=== PATIENT | female | born 1995 | race Two or more races ===

== ENCOUNTER 2017-03-17 00:10 | Emergency (ER) | payer OTHER ==
[2017-03-17 00:17] VITALS: BP 136/89; BMI 43.5
--- NOTE | 2017-03-17 01:11 | DR.GENAD ---
HPI - PCP Primary Care Physician: MANOJ - HPI Comment HPI Comment: HISTORY BELOW. - Complaint/Symptoms Chief Complaint Doctors Comments: INFECTED RIGHT INDEX FINGER TIMES 4 TO 5 DAYS. DRAINING. PIP RT INDEX FINGER SWOLLEN AND SLIGHTLY DRAINING PUS. Chief Complaint:: PT HAS ABCESS TOO RT 2ND DIGIT ON RT HAND - Nurses notes reviewed Nurses Notes Review: Yes - Source History Provided: Patient - Mode of Arrival Mode of Arrival: Ambulatory - Timing Onset of Chief Complaint: 03/13/17 Came on: Suddenly - Duration Duration: Constant Duration: Days - Severity Severity: Moderate PMH - PMH Past Medical History: No Past Surgical History: No Surgical History: No History - Family History History of Family Medical Conditions: Yes Family Medical History: Diabetes Mellitus, Cancer, [place], Sudden Cardiac - Social History Does any household member use tobacco: No Alcohol Use: None Do you use any recreational Drugs:: No Lives With: Family Lives Where: Home - infectious screening In the last 2 months have you had wt loss of >10#?: NO Have you had fever, night sweats or hemotysis?: No Have you traveled outside the country in the last 6 months?: No Isolation: Standard ROS - Review of Systems Constitutional: No Symptoms Reported Eyes: No Symptoms Reported ENTM: No Symptoms Reported Respiratoy: No Symptoms Reported Cardiovascular: No Symptoms Reported Gastrointestinal/Abdominal: No Symptoms Reported Genitourinary: No Symptoms Reported Neurological: No Symptoms Reported Musculoskeletal: Muscle Pain Integumentary: Other (INFECTED RT INDEX FINGER.) Hematologic/Lymphatic: No Symptoms Reported Endocrine: No Symptoms Reported All Other Systems: Reviewed and Negative PE - Vital Signs Vitals: Temperature 98.1 F Pulse Rate 58 Respiratory Rate 18 Blood Pressure 136/89 O2 Sat by Pulse Oximetry 100 - General Limitations: No Limitations General Appearance: Alert - Head Head Exam: Normal Inspection - Eyes Eye exam: Normal Appearance - ENT ENT Exam: Normal External Ear Exam External Ear Exam: Normal External Inspection TM/Canal Exam: Bilateral Normal Nose Exam: Normal Nose Exam Mouth Exam: Normal Inspection Throat Exam: Normal Inspection - Neck Neck Exam: Normal Inspection - Chest Chest Inspection: Symmetric Chest Wall Rise - Respiratory Respiratory Exam: Normal Lung Sounds Bilat Respiratory Exam: Bilateral Clear to Auscultation - Cardiovascular Cardiovascular Exam: Regular Rate, Normal Rhythm, Normal Heart Sounds - Abdominal Exam Abdominal Exam: Normal Inspection - Extremities Extremities Exam: Tenderness MDM - Differential Diagnosis Differential Diagnosis: INFECTED TIGHT INDEX FINGER. Course - Treatment Treatment: SEE ORDERS. CULTURE SPECIMEN OBTAIN FROM DRAINADE COMING OUT OF INFECTED FINGER. - Consultation Consultation Comments: SEE ORDERS - Education/Counseling Education/Counseling: Patient, Education Educated On: Treatment, Diagnosis, Needs for Follow Up ROR - Labs Reviewed Laboratory: 03/17/17 03:05 Finger - Right Index Gram Stain - Final - Diagnosis Discharge Problem: Infected finger - Discharge Plan Disposition: HOME, SELF-CARE Condition: Stable Prescriptions: Clindamycin HCl 300 mg PO Q6H #40 cap Ibuprofen [Motrin Tab 800 mg] 800 mg PO Q8H PRN #30 tab PRN Reason: Pain/Inflammation Sulfamethoxazole-Trimethoprim [BACTRIM DS TAB 800/160 MG *] 1 tab PO BID #20 tab - Follow ups/Referrals Follow ups/Referrals: [facility],None [Primary Care Provider] - 3 days - Instructions Instructions: Fingertip Infection Additional Instructions: RETURN TO ED IF WORSE.
[2017-03-17] MEDS ORDERED: BACTRIM DS TAB PO ONE ×2 (01:23→01:28)
[2017-03-17] MEDS ORDERED: CLEOCIN PO ONE (01:24)
[2017-03-17] MEDS ORDERED: MOTRIN TAB 800 MG PO ONE ×2 (01:25→01:27)
[2017-03-17] MEDS ORDERED: CLEOCIN ONE (01:28)
== END 2017-03-17 01:35 | disposition home or self-care (01) ==
LOC: ER 00:10
DX: L08.89 Other specified local infections of the skin and subcutaneous tissue (principal)
CPT/HCPCS: 87070; 87077; 87186; 87205; 99282